=== PATIENT | male | born 1995 | race Caucasian/White ===

== ENCOUNTER 2019-11-29 20:24 | Emergency (ER) | payer OTHER ==
[2019-11-29 20:39] VITALS: TEMP 97.8; BMI 24.4
[2019-11-29] MEDS ORDERED: ACETAMINOPHEN 1000 MG/100 ML VIAL (NON FORMULARY) IVPB ONE (21:01)
[2019-11-29] MEDS ORDERED: SODIUM CHLORIDE 0.9% 500 ML INFUS.BAG IV ONE (21:01)
--- NOTE | 2019-11-29 21:01 | PDOC ---
History of Present Illness - General Chief Complaint: Injury Stated Complaint: FALL Time Seen by Provider: 11/29/19 20:45 - History of Present Illness Initial Comments: 11/29/19 20:55 24yo healthy male presents with lower back pain after falling over a railing from an estimated 6-7 feet and losing consciousness for an estimated 30 seconds. Complains of dull lower back pain, non-radiating. States he had approximately 5 drinks. No headache, n/v. ROS negative. PMH/PSH: none Meds/allergies: none ETOH: endorses Drugs: denies tobacco: denies ROS GENERAL/CONSTITUTIONAL: No fever or chills. No weakness. HEAD, EYES, EARS, NOSE AND THROAT: No change in vision. No ear pain or discharge. No sore throat. CARDIOVASCULAR: No chest pain or shortness of breath RESPIRATORY: No cough, wheezing, or hemoptysis. GASTROINTESTINAL: No nausea, vomiting, diarrhea or constipation. GENITOURINARY: No dysuria, frequency, or change in urination. MUSCULOSKELETAL: Lower back pain. No neck pain. SKIN: No rash NEUROLOGIC: loss of consciousness. No headache, vertigo, or change in strength/sensation. ENDOCRINE: No increased thirst. No abnormal weight change HEMATOLOGIC/LYMPHATIC: No anemia, easy bleeding, or history of blood clots. ALLERGIC/IMMUNOLOGIC: No hives or skin allergy. PE GENERAL: Awake, alert, and fully oriented, in no acute distress HEAD: No signs of trauma, normocephalic, atraumatic EYES: PERRLA, EOMI, sclera anicteric, conjunctiva clear ENT: Auricles normal inspection, hearing grossly normal, nares patent, oropharynx clear without exudates. Moist mucosa NECK: Normal ROM, supple, no lymphadenopathy, JVD, or masses LUNGS: No distress, speaks full sentences, clear to auscultation bilaterally HEART: Regular rate and rhythm, normal S1 and S2, no murmurs, rubs or gallops, peripheral pulses normal and equal bilaterally. ABDOMEN: Soft, nontender, normoactive bowel sounds. No guarding, no rebound. No masses EXTREMITIES : Normal inspection, Normal range of motion, no edema. No clubbing or cyanosis. NEUROLOGICAL: Cranial nerves II through XII grossly intact. Normal speech, no focal sensorimotor deficits. Normal rectal tone. No saddle anesthesia SKIN: Warm, Dry, normal turgor, no rashes or lesions noted BACK: midline lumbosacral tenderness. small abrasion on left lower back Vital Signs Temp Pulse Resp BP Pulse Ox 97.8 F 77 20 131/73 98 11/29/19 20:25 11/29/19 20:25 11/29/19 20:25 11/29/19 20:25 11/29/19 20:25 MDM: 24yo healthy male presents with lower back pain after falling over a railing from an estimated 6-7 feet and losing consciousness for an estimated 30 seconds. Exam notable for midline lumbosacral tenderness. DDx includes spinal fracture, ICH, visceral injury. -EKG -CT head, entire spine, C/A/P -CBC, CMP, coags, UA, T&S, alcohol level 11/29/19 23:47 CT scans negative, except for incidental finding of "Borderline mild hepatomegaly. Indeterminate 9 mm low-attenuation right posterior hepatic lesion." Patient instructed to follow up. Labs show nothing acute. Mildly elevated alcohol level. DC home 11/30/19 06:34 Past History - Medical History Allergies/Adverse Reactions: Allergies Allergy/AdvReac Type Severity Reaction Status Date / Time No Known Allergies Allergy Verified 11/29/19 20:34 COPD: No - Psycho-Social/Smoking History Smoking History: Never smoked - Substance Abuse Hx (Audit-C & DAST Scrn) How often the patient has a drink containing alcohol: Monthly or less Number of drinks the patient has on a typical day: 1 or 2 How often the patient has six or more drinks on one occasion: Never Score: In Men: 4 or > Positive; In Women: 3 or > Positive: 1 Screen Result (Pos requires Nsg. Audit-10AR): Negative In the last yr the pt used illegal drug/Rx for NonMed reason: No Score: Yes response is considered Positive: 0 Screen Result (Positive result requires Nsg. DAST-10): Negative *Physical Exam - Vital Signs Last Vital Signs Temp Pulse Resp BP Pulse Ox 97.8 F 77 20 131/73 98 11/29/19 20:25 11/29/19 20:25 11/29/19 20:25 11/29/19 20:25 11/29/19 20:25 ED Treatment Course - LABORATORY CBC & Chemistry Diagram: 11/29/19 20:40 11/29/19 20:40 - RADIOLOGY Radiology Studies Ordered: Category Date Time Status ABDOMEN & PELVIS CT WITH CONTR [CT] Stat CT Scan 11/29/19 20:[address] W/O CONTR [CT] Stat CT Scan 11/29/19 20:[address] WITH CONTRAST [CT] Stat CT Scan 11/29/19 20:[address] WITHOUT CONTRAST [CT] Stat CT Scan 11/29/19 20:46 Ordered Discharge - Discharge Information Problems reviewed: Yes Clinical Impression/Diagnosis: Loss of consciousness for less than 30 minutes, Low back strain Fall Qualifiers: Encounter type: initial encounter Qualified Code(s): W19.XXXA - Unspecified fall, initial encounter Condition: Improved Disposition: HOME - Follow up/Referral - Patient Discharge Instructions Patient Printed Discharge Instructions: DI for Concussion, DI for Low Back Pain Additional Instructions: You were seen in the ER for lower back pain after you fell and loss consciousness. Your labs and imaging did not show any emergent problem. Your CT scan did show "Borderline mild hepatomegaly. Indeterminate 9 mm low-attenuation right posterior hepatic lesion." You should follow up with you primary doctor within one week for your injury and about these incidental findings on the CT scan, as you may benefit from further imaging to further characterize this lesion on a non-emergent basis. Please return to the ER if you experience continued or worsening symptoms, loss of consciousness, nausea or vomiting, weakness, numbness, urinary incontinence or retention, or any other reason. - Post Discharge Activity
[2019-11-29 21:12] LABS: BASO % 0.4 % (0-2.0); EOS % 4.9 % (0-4.5); HEMATOCRIT 42.1 % (35.4-49); HEMOGLOBIN 14.2 GM/dL (11.7-16.9); LYMPH % 41.5 % (8-40); MCHC 33.7 g/dl (32.0-35.9); MEAN CELL VOLUME 97.9 fl (80-96); MEAN PLT VOLUME 9.2 fl (7.5-11.1); MONO % 8.2 % (3.8-10.2); PLATELET COUNT 181 K/MM3 (134-434); RDW 14.1 % (11.9-15.9); WHITE BLOOD COUNT 8.1 K/mm3 (4.0-10.0)
[2019-11-29 21:34] LABS: INR 0.98 (0.83-1.09); PROTHROMBIN TIME (PATIENT) 11.6 SEC (9.7-13.0)
[2019-11-29 21:37] LABS: ACTIVATED PTT 26.7 SECONDS (25.2-36.5)
[2019-11-29 21:52] LABS: ALBUMIN 4.2 g/dl (3.4-5.0); BILIRUBIN,TOTAL 0.4 mg/dL (0.2-1); BLOOD UREA NITROGEN 16.1 mg/dL (7-18); CALCIUM 8.6 mg/dL (8.5-10.1); CREATININE 1.3 mg/dL (0.55-1.3); POTASSIUM 3.9 mmol/L (3.5-5.1); TOT PROT 7.2 g/dl (6.4-8.2)
[2019-11-29] MEDS ORDERED: ACETAMINOPHEN INJECTION 100 ML IVPB ONE (22:01)
[2019-11-29 22:58] LABS: PH,URINE 6.5 (5.0-8.0); URINE APPEARANCE CLOUDY; URINE BILIRUBIN NEGATIVE (NEGATIVE); URINE COLOR YELLOW; URINE GLUCOSE (UA) NEGATIVE (NEGATIVE); URINE KETONE NEGATIVE (NEGATIVE); URINE LEUK ESTERASE NEGATIVE (NEGATIVE); URINE NITRITE NEGATIVE (NEGATIVE); URINE PROTEIN NEGATIVE (NEGATIVE); URINE UROBILINOGEN 0.2 mg/dL (0.2-1.0)
[2019-11-29 23:02] VITALS: BP 128/72; PULSE 75
--- NOTE | 2019-11-30 00:05 | PDOC ---
Documentation entered by Ruby Lopez SCRIBE, acting as scribe for Em Andrade DO. Em Andrade DO: This documentation has been prepared by the John amaya Brenda, SCRIBE, under my direction and personally reviewed by me in its entirety. I confirm that the documentation accurately reflects all work, treatment, procedures, and medical decision making performed by me. Attending Attestation - Resident Resident Name: [email or web address] - ED Attending Attestation I have performed the following: I have examined & evaluated the patient, The case was reviewed & discussed with the resident, I agree w/resident's findings & plan, Exceptions are as noted - HPI HPI: 11/29/19 21:11 See resident HPI. - Physicial Exam PE: 11/29/19 21:11 See Resident Physical Exam. - Medical Decision Making 11/29/19 23:53 Patient is a 24 year old male s/p 6-7 foot fall, with pain to the lower back and occiput. Trauma louise scan neg for acute traumatic injury. Incidental liver findings discussed with patient. Copies of imaging provided. Patient now alert and oriented with a steady gait C-spine cleared clinically Will DC with friend 11/30/19 00:04 Discharge - Discharge Information Problems reviewed: Yes Clinical Impression/Diagnosis: Loss of consciousness for less than 30 minutes, Low back strain Fall Qualifiers: Encounter type: initial encounter Qualified Code(s): W19.XXXA - Unspecified fall, initial encounter Condition: Improved Disposition: HOME - Follow up/Referral - Patient Discharge Instructions Patient Printed Discharge Instructions: DI for Concussion, DI for Low Back Pain Additional Instructions: You were seen in the ER for lower back pain after you fell and loss consciousness. Your labs and imaging did not show any emergent problem. Your CT scan did show "Borderline mild hepatomegaly. Indeterminate 9 mm low-attenuation right posterior hepatic lesion." You should follow up with you primary doctor within one week for your injury and about these incidental findings on the CT scan, as you may benefit from further imaging to further characterize this lesion on a non-emergent basis. Please return to the ER if you experience continued or worsening symptoms, loss of consciousness, nausea or vomiting, weakness, numbness, urinary incontinence or retention, or any other reason. - Post Discharge Activity
== END 2019-11-29 23:39 | disposition home or self-care (01) ==
LOC: JER 20:24
PROC: 3E0333Z Introduction of Anti-inflammatory into Peripheral Vein, Percutaneous Approach (ICD-10-PCS; principal; 2019-11-29)
DX: S06.0X1A Concussion with loss of consciousness of 30 minutes or less, initial encounter (principal); S39.012A Strain of muscle, fascia and tendon of lower back, initial encounter
CPT/HCPCS: 36415; 70450-TC; 71260-TC; 72125-TC; 72129-TC; 72132-TC; 74177-TC; 80053; 80307; 81003; 85025; 85610; 85730; 99285-25; J0131; Q9967